=== PATIENT | female | born 1960 | race Caucasian/White ===

== ENCOUNTER 2017-02-03 07:46 | Day surgery (SDC) | payer OTHER ==
--- NOTE | 2017-02-03 09:14 | Operative Note ---
Colonoscopy (Tisha) Procedure date: 02/03/17 Date of : 60 Procedure:Colonoscopy Colonoscopy with cold snare polypectomy Indications: Mrs. Farris is a 56-year-old female who is here for follow-up screening/ surveillance colonoscopy. She did have a colonoscopy 5 years ago (Dr. Guero Macedo at [facility]) at which time 3 small polyps were removed (histology not available). The patient does state that her father had colon cancer in his mid 50s. She reports no abdominal pain, weight loss, change in her bowel habits or rectal bleeding. Performing Provider: Zonia Giles MD Referrring Provider: Yu Roy M.D. Sedation: Fentanyl 100 mg IV/Versed 7 mg IV Procedure: Prior to the procedure, a history and physical exam was performed, and patient medications and allergies were reviewed. The risks and benefits of the procedure and the sedation options and risks were discussed with the patient. All questions were answered and informed consent was obtained. Patient identification and proposed procedure were verified by the physician and the nurse. The patient was placed in a left lateral decubitus position. Throughout the procedure, the patient's blood pressure, pulse, and oxygen saturations were monitored continuously. Findings: On digital rectal examination there was normal rectal tone. There were no external hemorrhoids. The colonoscope was introduced through the anal canal to the rectum and advanced to the cecum. The ileocecal valve and appendiceal orifice were identified. The scope was advanced a short distance into the ileum which appeared grossly normal. The scope was then withdrawn into the colon. The cecum, ascending and transverse colon and mucosa were grossly normal. There were scattered diverticuli throughout the descending and sigmoid colon (LEFT colon). There was a 6 mm polyp in the rectosigmoid removed via cold snare polypectomy. The remaining rectum itself was normal. Upon retroflexion within the rectum there were grade 1 internal hemorrhoids. Impressions: 1. Rectosigmoid polyp 2. Left-sided diverticulosis 3. Small grade 1 internal hemorrhoids Recommendations: I will follow up the polyp pathology and recommend repeat colonoscopy again in 5 years based upon the patient's family history and present polyp histology. I would encourage fiber supplementation on a long-term daily maintenance basis. Complications: None EBL (ml): 0 at 0914
[2017-02-03 17:06] VITALS: BP 113/65
== END 2017-02-03 10:20 | disposition home or self-care (01) ==
LOC: SDC 07:46
PROVIDERS: Internal Medicine Gastroenterology
PROC: 0DBN8ZX Excision of Sigmoid Colon, Via Natural or Artificial Opening Endoscopic, Diagnostic (ICD-10-PCS; principal; 2017-02-03 08:30)
DX: Z12.11 Encounter for screening for malignant neoplasm of colon (principal); K63.5 Polyp of colon; K64.0 First degree hemorrhoids; Z80.0 Family history of malignant neoplasm of digestive organs